=== PATIENT | male | born 1950 | race Caucasian/White ===

== ENCOUNTER 2023-01-07 08:06 | Outpatient (CLI) | payer MEDICARE, BC, SELFPAY | END 2023-01-07 08:07 | disposition home or self-care (01) | PROVIDERS: Visit Provider Nurse Practitioner Family | DX: M27.2 Inflammatory conditions of jaws (principal); R13.10 Dysphagia, unspecified; E43 Unspecified severe protein-calorie malnutrition; Z68.21 Body mass index [BMI] 21.0-21.9, adult; Z72.0 Tobacco use; Z85.818 Personal history of malignant neoplasm of other sites of lip, oral cavity, and pharynx | CPT/HCPCS: 88305; 99203 ==

== ENCOUNTER 2023-01-21 12:48 | Outpatient (CLI) | payer MEDICARE, BC, SELFPAY | END 2023-01-21 12:49 | disposition home or self-care (01) | PROVIDERS: PCP Family Medicine; Visit Provider Nurse Practitioner Family | DX: M27.2 Inflammatory conditions of jaws (principal); R13.10 Dysphagia, unspecified; E43 Unspecified severe protein-calorie malnutrition; Z68.21 Body mass index [BMI] 21.0-21.9, adult; Z72.0 Tobacco use | CPT/HCPCS: 99213 ==

== ENCOUNTER 2023-02-18 12:51 | Outpatient (CLI) | payer MEDICARE, BC, SELFPAY | END 2023-02-18 12:52 | disposition home or self-care (01) | LOC: WOUND 12:51 | PROVIDERS: PCP Family Medicine; Visit Provider Nurse Practitioner Family | DX: M27.2 Inflammatory conditions of jaws (principal); R13.10 Dysphagia, unspecified; Z72.0 Tobacco use | CPT/HCPCS: 99213 ==

== ENCOUNTER 2023-03-04 08:05 | Outpatient (CLI) | payer MEDICARE, BC, SELFPAY | END 2023-03-04 08:06 | disposition home or self-care (01) | PROVIDERS: PCP Family Medicine; Visit Provider Nurse Practitioner Family | DX: M27.2 Inflammatory conditions of jaws (principal); R13.10 Dysphagia, unspecified | CPT/HCPCS: 99212 ==

== ENCOUNTER 2023-04-01 12:47 | Outpatient (CLI) | payer MEDICARE, BC, SELFPAY | END 2023-04-01 12:48 | disposition home or self-care (01) | LOC: WOUND 12:47 | PROVIDERS: PCP Family Medicine; Visit Provider Nurse Practitioner Family | DX: M27.2 Inflammatory conditions of jaws (principal); R13.10 Dysphagia, unspecified | CPT/HCPCS: 99212; G0277 ==

== ENCOUNTER 2023-04-01 13:00 | Outpatient (RCR) | payer MEDICARE, BC, SELFPAY | END 2023-04-03 23:59 | disposition home or self-care (01) | LOC: WOUND 13:00 | PROVIDERS: PCP Family Medicine; Visit Provider Nurse Practitioner Family | DX: M27.2 Inflammatory conditions of jaws (principal); R13.10 Dysphagia, unspecified; Z72.0 Tobacco use | CPT/HCPCS: G0277 ==

== ENCOUNTER 2023-04-29 10:37 | Outpatient (CLI) | payer MEDICARE, BC, SELFPAY | END 2023-04-29 10:38 | disposition home or self-care (01) | LOC: WOUND 10:37 | PROVIDERS: PCP Family Medicine; Visit Provider Nurse Practitioner Family | DX: M27.2 Inflammatory conditions of jaws (principal); R13.10 Dysphagia, unspecified; Z72.0 Tobacco use | CPT/HCPCS: 87070; 97597; 99212; G0277 ==

== ENCOUNTER 2023-05-04 08:00 | Outpatient (RCR) | payer MEDICARE, BC, SELFPAY | END 2023-05-04 23:59 | disposition home or self-care (01) | LOC: WOUND 08:00 | PROVIDERS: PCP Family Medicine; Visit Provider Nurse Practitioner Family | DX: M27.2 Inflammatory conditions of jaws (principal); R13.10 Dysphagia, unspecified | CPT/HCPCS: 87070; G0277 ==

== ENCOUNTER 2023-05-18 08:00 | Outpatient (RCR) | payer MEDICARE, BC, SELFPAY | END 2023-06-03 23:59 | disposition home or self-care (01) | LOC: WOUND 08:00 | PROVIDERS: PCP Family Medicine; Visit Provider Nurse Practitioner Family | DX: M27.2 Inflammatory conditions of jaws (principal); R13.10 Dysphagia, unspecified; H83.8X2 Other specified diseases of left inner ear; H92.02 Otalgia, left ear | CPT/HCPCS: 99212; G0277 ==

== ENCOUNTER 2023-05-20 10:33 | Outpatient (CLI) | payer MEDICARE, BC, SELFPAY | END 2023-05-20 10:34 | disposition home or self-care (01) | LOC: WOUND 10:33 | PROVIDERS: PCP Family Medicine; Visit Provider Nurse Practitioner Family | DX: M27.2 Inflammatory conditions of jaws (principal); R13.10 Dysphagia, unspecified | CPT/HCPCS: 99212 ==